=== PATIENT | female | born 1990 | race Caucasian/White ===

== ENCOUNTER 2016-07-24 14:25 | Outpatient (CLI) | payer MEDICAID ==
[~2016-07-24] VITALS: Ht 160 cm; Wt 67.7 kg
[~2016-07-24 14:25] MED LIST: ADHD MED; BACTROBAN15 GM TOP; CEPHALEXIN500 M1 PO; CLARITIN10 MG PO; CLEOCIN HCL300 MG PO; DEPO-PROVER400 MG/ML IM; DOXYCYCLINE 10100 MG PO; KLOR-CON M2020 MEQ PO; MIRENA52 MG IU; MOTRIN 800800 MG/TAB PO; NORCO 325 MG-51 TAB PO; ONE DAILY1 TA1 PO; OXY IR5 MG PO; PEPCID 20MG TAB20 MG PO; PERCOCET 325 MG1 TA2 PO; PHENERGAN12.5 MG/SU RC; PHENERGAN25 MG RC; PRENATAL1 TA1 PO; PRENATAL1 TA3 PO; PRENATAL1 TA7 PO; PROVERA 10MG10 MG PO; SPRINTEC 35 MCG1 TAB PO; VICODIN 5/5001 UDTAB PO; VITAMIN B-6100 MG PO; ZANTAC 150MG T150 MG PO; ZITHROMAX 250M250 MG PO; ZOFRAN 4MG T4 MG/TAB PO; ZOFRAN ODT4 MG PO; ZOFRAN4 M1 PO; ZOLOFT 50MG50 MG PO; ZOVIRAX 200MG200 MG PO; ZOVIRAX400 MG PO; ZOVIRAX51 PO; ZYRTEC 10MG10 MG
[2016-07-24 14:35] VITALS: BP 110/70; PULSE 68; TEMP 98.4
[2016-07-24 15:01] VITALS: BP 110/70; PULSE 68; TEMP 98.4
[2016-07-24] MEDS ORDERED: ZITHROMAX500 M2 PO (15:44)
== END 2016-07-24 15:09 | disposition home or self-care (01) ==
LOC: LDRO 14:25
DX: Z03.71 Encounter for suspected problem with amniotic cavity and membrane ruled out (principal); R05 Cough; Z3A.37 37 weeks gestation of pregnancy

== ENCOUNTER 2016-07-24 15:15 | Emergency (ER) | payer MEDICAID ==
[~2016-07-24] VITALS: Ht 160 cm; Wt 68.2 kg
[2016-07-24 15:19] VITALS: BP 101/57; PULSE 82; TEMP 98
[2016-07-24] MEDS ORDERED: ZITHROMAX500 M2 PO (15:44)
== END 2016-07-24 15:55 | disposition home or self-care (01) ==
LOC: COL.ER 15:15
DX: O99.513 Diseases of the respiratory system complicating pregnancy, third trimester (principal); J40 Bronchitis, not specified as acute or chronic; Z3A.37 37 weeks gestation of pregnancy

== ENCOUNTER 2016-07-27 19:43 | Outpatient (CLI) | payer MEDICAID ==
[~2016-07-27] VITALS: Ht 160 cm; Wt 68.2 kg
[~2016-07-27 19:43] MED LIST changes: +ZITHROMAX500 M2 PO
[2016-07-27 20:21] VITALS: PULSE 76; TEMP 98.3
[2016-07-27 21:48] LABS: BASO % 0.3 % (0.0-2.0); EOS # 0.1 (0.0-0.7); EOS % 0.7 % (0-4.0); GRAN # 7.7 (1.4-6.5); GRAN % 75.3 % (42.2-75.2); HEMATOCRIT 28.6 % (37.0-47.0); HEMOGLOBIN 9.6 g/dl (12.5-16.0); LYMPH % 19.4 % (20.0-51.0); MEAN CELL VOLUME 81 fl (80.0-100.0); MEAN CORPUSCULAR HEMOGLOBIN 27 pg (27.0-31.0); MEAN CORPUSCULAR HGB CONC 34 g/dl (33.0-37.0); MONO # 0.4 (0.1-0.6); MONO % 3.8 % (1.7-9.3); PLATELET COUNT 172 K/mm3 (130-400); RED BLOOD COUNT 3.52 M/mm3 (4.10-5.30); REDCELL DISTRIBUTION WIDTH-CV 13.3 % (11.5-14.5); WHITE BLOOD COUNT 10.2 K/mm3 (4.8-10.8)
== END 2016-07-27 22:20 | disposition home or self-care (01) ==
LOC: LDRO 19:43
PROVIDERS: Obstetrics & Gynecology
DX: O47.1 False labor at or after 37 completed weeks of gestation (principal); Z3A.37 37 weeks gestation of pregnancy; Z87.891 Personal history of nicotine dependence

== ENCOUNTER 2016-07-28 01:10 | Inpatient (IN) | payer MEDICAID ==
[~2016-07-28] VITALS: Ht 160 cm; Wt 68.2 kg
[2016-07-28] VITALS (12 sets, daily range): BP systolic 93–127; BP diastolic 59–87; PULSE 53–72; TEMP 97.6–98.4
[2016-07-29 07:30] VITALS: BP 110/84; PULSE 82; TEMP 98.4
[2016-07-29] MEDS ORDERED: IBU800 M1 PO (08:32)
[2016-07-29] MEDS ORDERED: PERCOCET 325 MG1 TA2 PO (08:33)
[2016-07-29 20:00] VITALS: BP 116/64; PULSE 62; TEMP 98
[2016-07-30 08:40] VITALS: BP 100/80; PULSE 82; TEMP 97.9
== END 2016-07-30 10:00 | disposition home or self-care (01) | DRG 775 ==
LOC: LDRO 01:10 → OB 01:35 → LDR 01:35 → OB 03:00
PROC: 10E0XZZ Delivery of Products of Conception, External Approach (ICD-10-PCS; principal; 2016-07-28)
DX: O99.824 Streptococcus B carrier state complicating childbirth (principal); O99.02 Anemia complicating childbirth; D64.9 Anemia, unspecified; Z3A.38 38 weeks gestation of pregnancy; Z37.0 Single live birth
CPT/HCPCS: J2590; J7120

== ENCOUNTER 2016-11-22 19:14 | Emergency (ER) | payer MEDICAID ==
[~2016-11-22] VITALS: Ht 160 cm; Wt 52.3 kg
[~2016-11-22 19:14] MED LIST changes: +IBU800 M1 PO
[2016-11-22 19:17] VITALS: TEMP 98.4
[2016-11-22] MEDS ORDERED: BUSPAR5 MG PO (19:19)
[2016-11-22] MEDS ORDERED: PRENATAL MVI PO (19:20)
[2016-11-22 20:21] LABS: BASO # 0.1 (0.0-0.2); EOS # 0.1 (0.0-0.7); EOS % 1.3 % (0-4.0); GRAN # 4.4 (1.4-6.5); GRAN % 62.8 % (42.2-75.2); HEMOGLOBIN 12.5 g/dl (12.5-16.0); LYMPH # 1.9 (1.2-3.4); LYMPH % 27.2 % (20.0-51.0); MEAN CELL VOLUME 84 fl (80.0-100.0); MEAN CORPUSCULAR HEMOGLOBIN 29 pg (27.0-31.0); MEAN CORPUSCULAR HGB CONC 34 g/dl (33.0-37.0); MEAN PLATELET VOLUME 11.6 fl (7.4-10.4); MONO # 0.5 (0.1-0.6); MONO % 7.4 % (1.7-9.3); PLATELET COUNT 195 K/mm3 (130-400); RED BLOOD COUNT 4.39 M/mm3 (4.10-5.30); REDCELL DISTRIBUTION WIDTH-CV 13.3 % (11.5-14.5)
[2016-11-22 20:22] LABS: HEMATOCRIT 36.8 % (37.0-47.0)
[2016-11-22 20:27] LABS: ADJUSTED CALCIUM 9.2 mg/dL (8.4-10.2); ALANINE AMINOTRANSFERASE 93 U/L (9-52); ALBUMIN 4.6 gm/dL (3.5-5.0); ALKALINE PHOSPHATASE 78 U/L (50-136); ANION GAP 16 mmol/L (7-16); BLOOD UREA NITROGEN 10 mg/dL (7-17); CALCIUM 9.7 mg/dL (8.4-10.2); CARBON DIOXIDE 21 mmol/L (22-30); CHLORIDE 103 mmol/L (98-107); CREATININE, serum 0.56 mg/dL (0.52-1.25); GLUCOSE 122 mg/dL (74-106); POTASSIUM 3.2 mmol/L (3.4-5.0); SODIUM 140 mmol/L (137-145); TOTAL PROTEIN 7.8 gm/dL (6.4-8.2)
[2016-11-22 20:28] LABS: INFLUENZA B NEGATIVE; PH 6 (5-8); SQUAMOUS EPITHELIAL 0-2 /hpf; URINE APPEARANCE Hazy; URINE BACTERIA None Seen /hpf; URINE BILIRUBIN Negative (NEGATIVE); URINE BLOOD 2+ (NEGATIVE); URINE COLOR Yellow; URINE GLUCOSE Negative (NEGATIVE); URINE KETONE 1+ (NEGATIVE); URINE RBC >50 /hpf; URINE UROBILINOGEN Negative (NEGATIVE); URINE WBC 0-2 /hpf
[2016-11-22 20:43] LABS: C-REACTIVE PROTEIN < 0.5 mg/dL (0.0-0.9)
[2016-11-22 21:11] VITALS: BP 109/69; PULSE 82
[2016-11-22] MEDS ORDERED: ZITHROMAX 250M250 MG PO (21:19)
[2016-11-22] MEDS ORDERED: NORCO 325 MG-51 TAB PO (21:19)
== END 2016-11-22 21:32 | disposition home or self-care (01) ==
LOC: COL.ER 19:14
PROVIDERS: Emergency Medicine
DX: O98.511 Other viral diseases complicating pregnancy, first trimester (principal); B27.90 Infectious mononucleosis, unspecified without complication; O99.511 Diseases of the respiratory system complicating pregnancy, first trimester; J40 Bronchitis, not specified as acute or chronic; O99.341 Other mental disorders complicating pregnancy, first trimester; F32.9 Major depressive disorder, single episode, unspecified; F41.9 Anxiety disorder, unspecified; Z3A.01 Less than 8 weeks gestation of pregnancy
CPT/HCPCS: J7030

== ENCOUNTER 2017-04-15 22:26 | Outpatient (CLI) | payer MEDICAID ==
[~2017-04-15] VITALS: Ht 160 cm; Wt 56.8 kg
[~2017-04-15 22:26] MED LIST changes: +BUSPAR5 MG PO; +PRENATAL MVI PO
[2017-04-15 23:10] VITALS: BP 96/57; PULSE 91; TEMP 98.1
== END 2017-04-15 23:20 | disposition home or self-care (01) ==
LOC: LDRO 22:26
DX: O26.892 Other specified pregnancy related conditions, second trimester (principal); R52 Pain, unspecified; Z3A.26 26 weeks gestation of pregnancy

== ENCOUNTER 2017-05-01 22:30 | Emergency (ER) | payer MEDICAID ==
[~2017-05-01] VITALS: Ht 160 cm; Wt 62.3 kg
[2017-05-01 22:33] VITALS: TEMP 97.8
[2017-05-01] MEDS ORDERED: BUSPAR5 MG PO (22:35)
[2017-05-01 23:02] LABS: BASO % 0.4 % (0.0-2.0); EOS # 0.1 (0.0-0.7); EOS % 0.7 % (0-4.0); GRAN % 75.8 % (42.2-75.2); LYMPH # 1.6 (1.2-3.4); LYMPH % 15.5 % (20.0-51.0); MEAN CELL VOLUME 90 fl (80.0-100.0); MEAN CORPUSCULAR HGB CONC 35 g/dl (33.0-37.0); MEAN PLATELET VOLUME 11.3 fl (7.4-10.4); MONO # 0.7 (0.1-0.6); PLATELET COUNT 138 K/mm3 (130-400); RED BLOOD COUNT 3.65 M/mm3 (4.10-5.30); WHITE BLOOD COUNT 10.5 K/mm3 (4.8-10.8)
[2017-05-01 23:03] LABS: HEMATOCRIT 32.7 % (37.0-47.0); HEMOGLOBIN 11.3 g/dl (12.5-16.0); MEAN CORPUSCULAR HEMOGLOBIN 31 pg (27.0-31.0)
[2017-05-01 23:11] LABS: CALCIUM 8.7 mg/dL (8.4-10.2); CREATININE, serum 0.45 mg/dL (0.52-1.25); POTASSIUM 3.6 mmol/L (3.4-5.0)
[2017-05-01 23:21] LABS: COLLECTION METHOD CLEAN CATCH
[2017-05-01 23:29] LABS: MUCOUS Present /lpf; PH 7 (5-8); URINE APPEARANCE Hazy; URINE BACTERIA Rare /hpf; URINE BILIRUBIN Negative (NEGATIVE); URINE BLOOD Negative (NEGATIVE); URINE COLOR Yellow; URINE GLUCOSE Negative (NEGATIVE); URINE KETONE 1+ (NEGATIVE); URINE LEUKOCYTE ESTERASE 2+ (NEGATIVE); URINE PROTEIN(semi-quant) Negative (NEGATIVE); URINE RBC 0-2 /hpf; URINE UROBILINOGEN Negative (NEGATIVE)
[2017-05-01] MEDS ORDERED: PHENERGAN 25 TA25 MG PO ×2 (23:34→23:51)
[2017-05-02 01:43] VITALS: BP 101/65; PULSE 88
== END 2017-05-02 01:45 | disposition home or self-care (01) ==
LOC: COL.ER 22:30
PROVIDERS: Emergency Medicine
DX: O21.9 Vomiting of pregnancy, unspecified (principal); O99.89 Other specified diseases and conditions complicating pregnancy, childbirth and the puerperium; R19.7 Diarrhea, unspecified; Z3A.29 29 weeks gestation of pregnancy
CPT/HCPCS: J2405; J2550; J7030

== ENCOUNTER 2017-05-12 01:48 | Emergency (ER) | payer MEDICAID ==
[~2017-05-12] VITALS: Ht 160 cm; Wt 64.3 kg
[~2017-05-12 01:48] MED LIST changes: +PHENERGAN 25 TA25 MG PO
[2017-05-12 01:53] VITALS: BP 123/68
[2017-05-12 02:19] LABS: COLLECTION METHOD CLEAN CATCH
[2017-05-12 02:38] LABS: AMORPHOUS CRYSTAL Present /uL; MUCOUS Present /lpf; PH 7 (5-8); URINE APPEARANCE Cloudy; URINE BACTERIA Rare /hpf; URINE BILIRUBIN Negative (NEGATIVE); URINE BLOOD Negative (NEGATIVE); URINE COLOR Yellow; URINE GLUCOSE Negative (NEGATIVE); URINE KETONE Negative (NEGATIVE); URINE LEUKOCYTE ESTERASE 3+ (NEGATIVE); URINE PROTEIN(semi-quant) 1+ (NEGATIVE); URINE UROBILINOGEN Negative (NEGATIVE)
[2017-05-12] MEDS ORDERED: FLAGYL500 MG PO (03:04)
[2017-05-12 03:17] VITALS: PULSE 125; TEMP 97.5
[2017-05-12 05:11] LABS: CHLAMYDIA/TRACH by PCR Female NOT DETECTED; NEISSERIA GON by PCR Female NOT DETECTED
== END 2017-05-12 03:17 | disposition home or self-care (01) ==
LOC: COL.ER 01:48
PROVIDERS: Nurse Practitioner
DX: O23.593 Infection of other part of genital tract in pregnancy, third trimester (principal); N76.0 Acute vaginitis; O99.343 Other mental disorders complicating pregnancy, third trimester; F31.9 Bipolar disorder, unspecified; F90.9 Attention-deficit hyperactivity disorder, unspecified type; Z87.891 Personal history of nicotine dependence; Z3A.30 30 weeks gestation of pregnancy

== ENCOUNTER 2017-06-23 23:36 | Emergency (ER) | payer MEDICAID ==
[~2017-06-23] VITALS: Ht 160 cm; Wt 69.7 kg
[~2017-06-23 23:36] MED LIST changes: +FLAGYL500 MG PO
[2017-06-23 23:43] VITALS: TEMP 98.5
[2017-06-24 01:02] VITALS: BP 128/83; PULSE 89
== END 2017-06-24 01:02 | disposition home or self-care (01) ==
LOC: COL.ER 23:36
DX: O99.513 Diseases of the respiratory system complicating pregnancy, third trimester (principal); J06.9 Acute upper respiratory infection, unspecified; Z3A.37 37 weeks gestation of pregnancy

== ENCOUNTER 2017-07-08 15:04 | Outpatient (CLI) | payer MEDICAID ==
[~2017-07-08] VITALS: Ht 160 cm; Wt 69.1 kg
[2017-07-08 15:15] VITALS: BP 98/61; PULSE 72; TEMP 98.5
[2017-07-08 15:17] VITALS: BP 98/61; PULSE 72; TEMP 98.5
== END 2017-07-08 16:27 | disposition home or self-care (01) ==
LOC: LDRO 15:04 → LDR 15:10 → LDRO 16:27
DX: O36.8130 Decreased fetal movements, third trimester, not applicable or unspecified (principal); O99.89 Other specified diseases and conditions complicating pregnancy, childbirth and the puerperium; R10.9 Unspecified abdominal pain; Z3A.38 38 weeks gestation of pregnancy
CPT/HCPCS: OP

== ENCOUNTER 2017-07-12 05:06 | Emergency (ER) | payer MEDICAID ==
[~2017-07-12] VITALS: Ht 160 cm; Wt 69.1 kg
[2017-07-12 06:02] LABS: INFLUENZA A NEGATIVE; INFLUENZA B NEGATIVE; STREP SCREEN POSITIVE
[2017-07-12 06:27] LABS: COLLECTION METHOD CLEAN CATCH
[2017-07-12 06:42] LABS: AMORPHOUS CRYSTAL Present /uL; MUCOUS Present /lpf; PH 7 (5-8); URINE APPEARANCE Cloudy; URINE BACTERIA None Seen /hpf; URINE BILIRUBIN Negative (NEGATIVE); URINE BLOOD Negative (NEGATIVE); URINE COLOR Yellow; URINE GLUCOSE Negative (NEGATIVE); URINE KETONE Negative (NEGATIVE); URINE LEUKOCYTE ESTERASE Negative (NEGATIVE); URINE NITRATE Negative (NEGATIVE); URINE PROTEIN(semi-quant) Negative (NEGATIVE); URINE RBC 0-2 /hpf
[2017-07-12] MEDS ORDERED: OMNICEF 300MG300 MG PO (06:57)
[2017-07-12 07:13] VITALS: BP 117/79; PULSE 73; TEMP 98.2
== END 2017-07-12 07:14 | disposition home or self-care (01) ==
LOC: COL.ER 05:06
PROVIDERS: Emergency Medicine
DX: O99.513 Diseases of the respiratory system complicating pregnancy, third trimester (principal); J02.0 Streptococcal pharyngitis; Z3A.39 39 weeks gestation of pregnancy

== ENCOUNTER 2017-07-15 19:16 | Inpatient (IN) | payer MEDICAID ==
[~2017-07-15] VITALS: Ht 160 cm; Wt 69.1 kg
[~2017-07-15 19:16] MED LIST changes: +OMNICEF 300MG300 MG PO
[2017-07-15 20:30] VITALS: BP 111/77; PULSE 77; TEMP 97.7
[2017-07-15 22:05] LABS: BASO % 0.5 % (0.0-2.0); EOS # 0.1 (0.0-0.7); EOS % 0.6 % (0-4.0); GRAN # 6.2 (1.4-6.5); GRAN % 74.6 % (42.2-75.2); LYMPH # 1.5 (1.2-3.4); LYMPH % 18.5 % (20.0-51.0); MEAN CELL VOLUME 84 fl (80.0-100.0); MEAN CORPUSCULAR HGB CONC 32 g/dl (33.0-37.0); MEAN PLATELET VOLUME 10.8 fl (7.4-10.4); MONO # 0.4 (0.1-0.6); MONO % 5.2 % (1.7-9.3); PLATELET COUNT 192 K/mm3 (130-400); RED BLOOD COUNT 3.19 M/mm3 (4.10-5.30); REDCELL DISTRIBUTION WIDTH-CV 13.6 % (11.5-14.5)
[2017-07-15 22:08] LABS: HEMATOCRIT 26.9 % (37.0-47.0); HEMOGLOBIN 8.7 g/dl (12.5-16.0); MEAN CORPUSCULAR HEMOGLOBIN 27 pg (27.0-31.0)
[2017-07-15 22:45] VITALS: BP 114/68; PULSE 71
[2017-07-15 23:15] VITALS: BP 131/73; PULSE 72
[2017-07-15 23:30] VITALS: BP 115/74; PULSE 78
[2017-07-15 23:45] VITALS: BP 103/57; PULSE 65; TEMP 97.8
[2017-07-16] VITALS (16 sets, daily range): BP systolic 98–148; BP diastolic 29–92; PULSE 40–70; TEMP 97.6–99.1
[2017-07-16 01:04] LABS: TRICYCLIC ANTIDEPRESS URINE NEGATIVE
[2017-07-17 00:21] VITALS: BP 98/46; PULSE 62; TEMP 97.6
[2017-07-17] MEDS ORDERED: PERCOCET 325 MG1 TA2 PO (08:23)
[2017-07-17] MEDS ORDERED: IBU600 MG PO (08:23)
[2017-07-17 08:25] VITALS: BP 92/57; PULSE 62; TEMP 98.1
[2017-07-17 15:54] VITALS: BP 95/54; PULSE 57; TEMP 98.6
== END 2017-07-17 18:00 | disposition home or self-care (01) | DRG 774 ==
LOC: LDRO 19:16 → LDR 21:44 → OB 21:44
PROVIDERS: Obstetrics & Gynecology
PROC: 10E0XZZ Delivery of Products of Conception, External Approach (ICD-10-PCS; principal; 2017-07-16)
DX: O69.81X0 Labor and delivery complicated by cord around neck, without compression, not applicable or unspecified (principal); O98.313 Other infections with a predominantly sexual mode of transmission complicating pregnancy, third trimester; Z3A.39 39 weeks gestation of pregnancy; A59.01 Trichomonal vulvovaginitis; Z37.0 Single live birth
CPT/HCPCS: J2590; J7120

== ENCOUNTER 2017-10-07 03:13 | Emergency (ER) | payer MEDICAID ==
[~2017-10-07] VITALS: Ht 160 cm; Wt 52.3 kg
[~2017-10-07 03:13] MED LIST changes: +IBU600 MG PO
[2017-10-07 03:15] VITALS: BP 113/78; PULSE 70; TEMP 97.8
[2017-10-07 03:43] LABS: COLLECTION METHOD CLEAN CATCH
[2017-10-07 03:49] LABS: PH 6 (5-8); SQUAMOUS EPITHELIAL 0-2 /hpf; URINE APPEARANCE Clear; URINE BACTERIA None Seen /hpf; URINE BILIRUBIN Negative (NEGATIVE); URINE BLOOD 2+ (NEGATIVE); URINE COLOR Straw; URINE GLUCOSE Negative (NEGATIVE); URINE KETONE Negative (NEGATIVE); URINE LEUKOCYTE ESTERASE Negative (NEGATIVE); URINE NITRATE Negative (NEGATIVE); URINE PROTEIN(semi-quant) Negative (NEGATIVE); URINE RBC 0-2 /hpf; URINE UROBILINOGEN Negative (NEGATIVE)
[2017-10-07 04:09] LABS: BASO # 0.1 (0.0-0.2); BASO % 1.1 % (0.0-2.0); EOS # 0.1 (0.0-0.7); EOS % 1.8 % (0-4.0); GRAN # 3.7 (1.4-6.5); GRAN % 51.1 % (42.2-75.2); HEMOGLOBIN 12.1 g/dl (12.5-16.0); LYMPH # 2.9 (1.2-3.4); LYMPH % 39.3 % (20.0-51.0); MEAN CELL VOLUME 79 fl (80.0-100.0); MEAN CORPUSCULAR HEMOGLOBIN 26 pg (27.0-31.0); MEAN CORPUSCULAR HGB CONC 33 g/dl (33.0-37.0); MONO # 0.5 (0.1-0.6); MONO % 6.6 % (1.7-9.3); PLATELET COUNT 260 K/mm3 (130-400); RED BLOOD COUNT 4.66 M/mm3 (4.10-5.30); REDCELL DISTRIBUTION WIDTH-CV 14.5 % (11.5-14.5)
[2017-10-07 04:16] LABS: ALBUMIN 4.1 gm/dL (3.5-5.0); BILIRUBIN,TOTAL 0.3 mg/dL (0.0-1.0); CALCIUM 9.2 mg/dL (8.4-10.2); CREATININE, serum 0.58 mg/dL (0.52-1.25); POTASSIUM 3.7 mmol/L (3.4-5.0); TOTAL PROTEIN 7.8 gm/dL (6.4-8.2)
== END 2017-10-07 07:11 | disposition home or self-care (01) ==
LOC: COL.ER 03:13
PROVIDERS: Emergency Medicine
DX: R10.30 Lower abdominal pain, unspecified (principal); F17.210 Nicotine dependence, cigarettes, uncomplicated; Z87.442 Personal history of urinary calculi; Z98.890 Other specified postprocedural states

== ENCOUNTER 2017-11-22 23:46 | Emergency (ER) | payer MEDICAID ==
[~2017-11-22] VITALS: Ht 160 cm; Wt 50.0 kg
[2017-11-22 23:55] VITALS: BP 124/76; TEMP 97.9
[2017-11-23 00:24] LABS: COLLECTION METHOD CLEAN CATCH
[2017-11-23 00:26] LABS: BASO # 0.1 (0.0-0.2); BASO % 0.9 % (0.0-2.0); EOS % 0.5 % (0-4.0); GRAN # 3.9 (1.4-6.5); HEMOGLOBIN 11.6 g/dl (12.5-16.0); LYMPH # 2.9 (1.2-3.4); LYMPH % 38.1 % (20.0-51.0); MEAN CELL VOLUME 81 fl (80.0-100.0); MEAN CORPUSCULAR HEMOGLOBIN 27 pg (27.0-31.0); MEAN CORPUSCULAR HGB CONC 34 g/dl (33.0-37.0); MEAN PLATELET VOLUME 11.5 fl (7.4-10.4); MONO # 0.6 (0.1-0.6); MONO % 8.2 % (1.7-9.3); PLATELET COUNT 199 K/mm3 (130-400); RED BLOOD COUNT 4.23 M/mm3 (4.10-5.30); REDCELL DISTRIBUTION WIDTH-CV 13.6 % (11.5-14.5)
[2017-11-23 00:31] LABS: HEMATOCRIT 34.4 % (37.0-47.0)
[2017-11-23 00:32] LABS: MUCOUS Present /lpf; PH 6 (5-8); SQUAMOUS EPITHELIAL 0-2 /hpf; URINE APPEARANCE Clear; URINE BACTERIA Rare /hpf; URINE BILIRUBIN Negative (NEGATIVE); URINE BLOOD Negative (NEGATIVE); URINE COLOR Yellow; URINE GLUCOSE Negative (NEGATIVE); URINE KETONE Negative (NEGATIVE); URINE LEUKOCYTE ESTERASE Negative (NEGATIVE); URINE NITRATE Negative (NEGATIVE); URINE PROTEIN(semi-quant) Negative (NEGATIVE); URINE RBC None Seen /hpf; URINE UROBILINOGEN Negative (NEGATIVE)
[2017-11-23 00:45] LABS: ALANINE AMINOTRANSFERASE 29 U/L (9-52); ALBUMIN 4.1 gm/dL (3.5-5.0); ALKALINE PHOSPHATASE 66 U/L (50-136); ANION GAP 14 mmol/L (7-16); AST,SGOT 22 U/L (15-37); BILIRUBIN,TOTAL 0.8 mg/dL (0.0-1.0); BLOOD UREA NITROGEN 13 mg/dL (7-17); CALCIUM 9.3 mg/dL (8.4-10.2); CARBON DIOXIDE 19 mmol/L (22-30); CHLORIDE 108 mmol/L (98-107); GLUCOSE 94 mg/dL (74-106); LIPASE 84 U/L (23-300); POTASSIUM 3.3 mmol/L (3.4-5.0); SODIUM 142 mmol/L (137-145); TOTAL PROTEIN 7.6 gm/dL (6.4-8.2)
[2017-11-23 01:00] LABS: C-REACTIVE PROTEIN < 0.5 mg/dL (0.0-0.9)
[2017-11-23] MEDS ORDERED: ZOFRAN 4MG T4 MG/TAB PO (02:06)
[2017-11-23] MEDS ORDERED: PHENERGAN 25 TA25 MG PO (02:06)
[2017-11-23 02:29] VITALS: PULSE 57
== END 2017-11-23 02:29 | disposition home or self-care (01) ==
LOC: COL.ER 23:46
PROVIDERS: Emergency Medicine
DX: R11.2 Nausea with vomiting, unspecified (principal); F41.9 Anxiety disorder, unspecified; Z87.442 Personal history of urinary calculi; Z87.891 Personal history of nicotine dependence
CPT/HCPCS: J2405; J7030

== ENCOUNTER 2018-04-29 12:37 | Emergency (ER) | payer MEDICAID ==
[~2018-04-29] VITALS: Ht 160 cm; Wt 58.2 kg
[2018-04-29 13:13] VITALS: BP 111/55; TEMP 99
[2018-04-29] MEDS ORDERED: BONJESTA ER 201 EACH PO (13:56)
[2018-04-29] MEDS ORDERED: ZITHROMAX Z PA250 MG PO (14:23)
[2018-04-29 14:36] VITALS: PULSE 82
== END 2018-04-29 14:37 | disposition home or self-care (01) ==
LOC: COL.ER 12:37
DX: O99.342 Other mental disorders complicating pregnancy, second trimester (principal); O26.892 Other specified pregnancy related conditions, second trimester; J02.9 Acute pharyngitis, unspecified; F31.9 Bipolar disorder, unspecified; F90.9 Attention-deficit hyperactivity disorder, unspecified type; Z87.891 Personal history of nicotine dependence; Z3A.17 17 weeks gestation of pregnancy; Z87.442 Personal history of urinary calculi

== ENCOUNTER 2018-07-17 12:04 | Outpatient (CLI) | payer MEDICAID ==
[~2018-07-17] VITALS: Ht 160 cm; Wt 68.2 kg
[~2018-07-17 12:04] MED LIST changes: +BONJESTA ER 201 EACH PO; +ZITHROMAX Z PA250 MG PO
[2018-07-17 12:16] VITALS: BP 100/61; PULSE 75; TEMP 98.3
[2018-07-17] MEDS ORDERED: ZANTAC 7575 MG PO (12:24)
--- NOTE | 2018-07-17 12:55 | NUR ---
1210- Pt arrives on unit ambulatory for labor check. States she thinks her water broke possibly Monday night. States she has intermittent "little gushes", they usually occur when the baby moves or if she is changing positions in bed while sleeping but states it doesnt happen while she is walking around. Pt denies other problems with . 1213- EFM and TOCO on and tracing. Assessment completed. VSS. 1232- Amniotrace performed by this RN, Pt encouraged to cough, no change noted to swab. SVE also by this RN, cervix MP and low in pelvis, closed and thick. 1248- EFM and TOCO off. Pt up to change into street clothes. 1255- Discharge paperwork given and explained. Pt denies questions. Ambulates off unit independently, in stable condition.
== END 2018-07-17 12:55 | disposition home or self-care (01) ==
LOC: LDRO 12:04
DX: Z34.92 Encounter for supervision of normal pregnancy, unspecified, second trimester (principal); Z3A.27 27 weeks gestation of pregnancy

== ENCOUNTER 2018-08-24 15:05 | Outpatient (CLI) | payer MEDICAID ==
[~2018-08-24] VITALS: Ht 160 cm; Wt 66.8 kg
[~2018-08-24 15:05] MED LIST changes: +ZANTAC 7575 MG PO
--- NOTE | 2018-08-24 15:10 | NUR ---
1510- Pt arrives on unit with complaints of sharp lower abd pain. Denies cramping or contractions. Denies VB, LOF. +FM. Pt has 3 of her young children with her and no support person. 1518- Pt into bed, EFM and TOCO on and tracing. Assessment completed. VSS. Call light within reach.
[2018-08-24 15:21] VITALS: BP 118/70; PULSE 110; TEMP 98
[2018-08-24] MEDS ORDERED: VALTREX 50500 MG/TAB PO (15:27)
--- NOTE | 2018-08-24 16:00 | NUR ---
1555- Pt up to void and provide UA. EFM and TOCO off. Category I FHR tracing noted. Pt remains off unit so she could tend to her children while UA processes. 1632- Pt back to bed, EFM and TOCO on and tracing. 1634- FHR noted to be tracing 80-90, this RN at bedisde. Pt sitting stright up in bed with child on lap. Pt encouraged to reposition. FHR back to baseline.
[2018-08-24 16:10] LABS: COLLECTION METHOD CLEAN CATCH
[2018-08-24 16:38] LABS: AMORPHOUS CRYSTAL Present /uL; PH 9 (5-8); SQUAMOUS EPITHELIAL 0-2 /hpf; URINE APPEARANCE Turbid; URINE BACTERIA None Seen /hpf; URINE BILIRUBIN Negative (NEGATIVE); URINE BLOOD Negative (NEGATIVE); URINE CALCIUM OXALATE CRYSTAL Present /hpf; URINE COLOR Amber; URINE GLUCOSE Negative (NEGATIVE); URINE KETONE Negative (NEGATIVE); URINE LEUKOCYTE ESTERASE Negative (NEGATIVE); URINE NITRATE Negative (NEGATIVE); URINE PROTEIN(semi-quant) Negative (NEGATIVE); URINE RBC 0-2 /hpf; URINE UROBILINOGEN Negative (NEGATIVE)
--- NOTE | 2018-08-24 16:41 | NUR ---
1641- Pt updated on plan to discharge Pt home. EFM and TOCO off. Pt denies questions at this time. 1647- Discharge paperwork given and explained. Pt denies questions. 1650- Pt ambulates off unit independently in stable condition with children.
== END 2018-08-24 16:50 | disposition home or self-care (01) ==
LOC: LDRO 15:05 → LDR 15:15 → LDRO 16:50
PROVIDERS: Obstetrics & Gynecology
DX: O26.893 Other specified pregnancy related conditions, third trimester (principal); R10.9 Unspecified abdominal pain; Z3A.33 33 weeks gestation of pregnancy
CPT/HCPCS: OP

== ENCOUNTER 2018-09-14 20:26 | Outpatient (CLI) | payer MEDICAID ==
[~2018-09-14] VITALS: Ht 160 cm; Wt 70.0 kg
[~2018-09-14 20:26] MED LIST changes: -ZOFRAN8 MG PO
--- NOTE | 2018-09-14 20:30 | NUR ---
2029 G9L5 36.4 WEEK GEST TO LR3 WITH C/O CONSTANT BACK AND PELVIC PAIN AND VAGINAL PRESSURE AND SOB. EFM ON. NO CONTRACTIONS SEEN OR C/O BY PT. ALVAROE . VERY ANXIOUS TO HAVE HER BABY. DEL ONE OF HER CHILDREN IN CAR ON WAY TO HOSPITAL AND AFFRAID THAT WILL HAPPEN AGAIN. ASSESSMENT DONE. 2044 DR SILVER CALLED IN AND REPORT GIVEN WITH ORDER TO DISMISS IN ONE HOUR IF NO CERVICAL CHANGE.
[2018-09-14 20:40] VITALS: BP 121/77; PULSE 65; TEMP 98.2
[2018-09-14] MEDS ORDERED: ZOFRAN8 MG PO (20:57)
[2018-09-14 21:00] VITALS: BP 121/77; PULSE 65; TEMP 98.2
--- NOTE | 2018-09-14 21:30 | NUR ---
2130 SVE WITH NO CHANGE. C/O SOB ON ADM. LUNGS CL X4 AND PULSE OX WAS 99%. NO OBVIOUS SIGNS OF LABORED BREATHING OR SOB. DISMISS INSTRUCTIONS GIVEN. WAITING FOR RIDE 2200 HOME WITH INSTRUCTIONS.
== END 2018-09-14 22:00 | disposition home or self-care (01) ==
LOC: LDRO 20:26
DX: O99.89 Other specified diseases and conditions complicating pregnancy, childbirth and the puerperium (principal); M54.9 Dorsalgia, unspecified; M25.559 Pain in unspecified hip; Z3A.36 36 weeks gestation of pregnancy

== ENCOUNTER → 2018-09-14 | Emergency (ER) | payer MEDICAID ==
[~2018-09-14] MED LIST changes: +VALTREX 50500 MG/TAB PO; +ZOFRAN8 MG PO
== END ==
LOC: COL.ER 20:05
DX: Z72.9 Problem related to lifestyle, unspecified (principal)

== ENCOUNTER 2018-09-16 11:16 | Outpatient (CLI) | payer MEDICAID ==
[~2018-09-16] VITALS: Ht 160 cm; Wt 69.1 kg
[~2018-09-16 11:16] MED LIST changes: +ZOFRAN8 MG PO
--- NOTE | 2018-09-16 11:30 | NUR ---
Pt arrives on unit ambulatory. States decreased movement, "I haven't felt the baby move since last night. Normally I drink orange juice in the morning and she kicks, but today she hasn't. I have also had blood when I wipe since , I'm not sure if my water broke." G9L5 at 37.4 weeks. Denies regular contractions. Changed into a clean gown. EFM and toco applied. VSS. Amniotest negative. SVE per this RN /-3 with white discharge on glove. No blood. Admission assessment completed. Dr. Khalil notified. Orders for discharge with reactive FHR strip.
[2018-09-16 12:12] VITALS: BP 112/73; PULSE 92; TEMP 98.1
--- NOTE | 2018-09-16 12:12 | NUR ---
SVE unchanged. Reactive FHR strip obtained. Pt taken off monitors. Discharge instructions given. No questions at this time. Leaves unit ambulatory.
== END 2018-09-16 12:15 | disposition home or self-care (01) ==
LOC: LDRO 11:16 → LDR 11:42 → LDRO 12:15
DX: O36.8130 Decreased fetal movements, third trimester, not applicable or unspecified (principal); Z3A.37 37 weeks gestation of pregnancy
CPT/HCPCS: OP

== ENCOUNTER 2018-09-19 19:07 | Outpatient (CLI) | payer MEDICAID ==
[~2018-09-19] VITALS: Ht 160 cm; Wt 70.0 kg
--- NOTE | 2018-09-19 19:15 | NUR ---
G9L5. 37-1. Ambulatory to LDR 1. Clean gown on. EFM and TOCO explained and applied. Pt states she thinks her water broke around 0600 this morning. She was unsure if it was her water so she waited and throughout the day she states her underwear was wet multiple times throughout the day. Pt states she did not put a pad on due to them being uncomfortable. Pt denies contractions but states her lower back started hurting around 1200 today and is come and go. Pt states with her other labors she did not have contractions or did not feel them at least. SVE 2-3/75/-3, amniotest negative and was a dry exam by JENNY Key. Plan of care explained and pt verbalizes understanding. Call light within reach. 1953: updated on pts status and discharge orders received. See physican notification. 1999: 's orders explained and pt comfortable with being discharge without staying the extra hour. Pt off moniotors to change. 2011: Discharge instructions explained and pt verbalized understanding. Pt ambulatory off unit.
[2018-09-19 19:29] VITALS: BP 115/73; PULSE 85; TEMP 98.1
== END 2018-09-19 20:12 | disposition home or self-care (01) ==
LOC: LDRO 19:07
DX: O42.92 Full-term premature rupture of membranes, unspecified as to length of time between rupture and onset of labor (principal); Z3A.37 37 weeks gestation of pregnancy

== ENCOUNTER 2018-09-26 11:03 | Outpatient (CLI) | payer MEDICAID ==
[~2018-09-26] VITALS: Ht 160 cm; Wt 70.9 kg
[2018-09-26 11:10] VITALS: BP 117/76; PULSE 83; TEMP 98.1
--- NOTE | 2018-09-26 11:10 | NUR ---
Pt here from ER with c/o vaginal pressure. Pt to LDR 4 and to EFM. Pt 38.1 weeks gestation, G9L5. Pt states baby is active, denies any contractions. SVE: -2, no change from the office exam 2 days ago. Assessment complete. 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 GBS + and GERD. Dr Fragoso called and updated, may dc home after reactive NST.
[2018-09-26 11:12] VITALS: BP 117/76; PULSE 83; TEMP 98.1
[2018-09-26 11:35] VITALS: PULSE 78
--- NOTE | 2018-09-26 11:38 | NUR ---
1140NO CHANGES AND NO CONTRACTIONS NOTED. DR MCCLAIN CALLED AND VIEWED STRIP. ORDERS TO DISMISS TO HOME. ALL DISCHARGE INSTRUCTIONS GIVEN TO PATIENT WITH VERBAL UNDERSTANDING.
== END 2018-09-26 11:46 | disposition home or self-care (01) ==
LOC: LDRO 11:03 → LDR 11:15 → LDRO 11:46
DX: O26.893 Other specified pregnancy related conditions, third trimester (principal); R10.2 Pelvic and perineal pain; Z3A.38 38 weeks gestation of pregnancy
CPT/HCPCS: OP

== ENCOUNTER 2018-09-27 20:21 | Inpatient (IN) | payer MEDICAID ==
[~2018-09-27] VITALS: Ht 160 cm; Wt 70.9 kg
--- NOTE | 2018-09-27 20:15 | NUR ---
2014- Patient brought up to labor and delivery via wheelchair from emergency department. 2017- EFM applied. Patient pale/green in the face, emesis bucket placed at bedside. Patient c/o of nausea and vomiting since yesterday 09/26 but has gotten worse today. Unable to eat or drink, and has had diarrhea today. Patient was last seen yesterday for similar symptoms. 2026- Vitals stable, temp 99.2, SVE 3/50/-2 (same exam as yesterday) 2034- Dr. Solorzano called at this time, for orders. Orders receieved to start IV, draw labs, give fluid and anti-nausea/vomiting med. see physician notification.
[~2018-09-27 20:21] MED LIST changes: -PROTONIX20 MG PO
[2018-09-27 20:30] VITALS: BP 118/79; PULSE 96; TEMP 99.3
[2018-09-27 21:18] LABS: COLLECTION METHOD CLEAN CATCH
[2018-09-27 21:21] LABS: BASO % 0.2 % (0.0-2.0); EOS % 0.1 % (0-4.0); GRAN # 12.1 (1.4-6.5); LYMPH % 6.9 % (20.0-51.0); MEAN CELL VOLUME 92 fl (80.0-100.0); MEAN CORPUSCULAR HEMOGLOBIN 32 pg (27.0-31.0); MEAN CORPUSCULAR HGB CONC 35 g/dl (33.0-37.0); MONO # 0.6 (0.1-0.6); MONO % 4.2 % (1.7-9.3); PLATELET COUNT 106 K/mm3 (130-400); RED BLOOD COUNT 3.78 M/mm3 (4.10-5.30); REDCELL DISTRIBUTION WIDTH-CV 14.1 % (11.5-14.5)
[2018-09-27 21:32] LABS: ALANINE AMINOTRANSFERASE 19 U/L (9-52); ALBUMIN 3.4 gm/dL (3.5-5.0); ALKALINE PHOSPHATASE 171 U/L (50-136); ANION GAP 9 mmol/L (7-16); AST,SGOT 35 U/L (15-37); CALCIUM 7.9 mg/dL (8.4-10.2); CARBON DIOXIDE 26 mmol/L (22-30); CHLORIDE 105 mmol/L (98-107); CREATININE, serum 0.41 (0.52-1.25); GLUCOSE 64 mg/dL (74-106); SODIUM 139 mmol/L (137-145); TOTAL PROTEIN 6.3 gm/dL (6.4-8.2)
[2018-09-27 21:42] LABS: HEMATOCRIT 34.7 % (37.0-47.0)
[2018-09-27 21:48] LABS: BLOOD UREA NITROGEN < 2 mg/dL (7-17)
[2018-09-27 21:49] LABS: POTASSIUM 2.4 mmol/L (3.4-5.0)
[2018-09-27 21:50] LABS: MUCOUS Present /lpf; PH 6 (5-8); URINE APPEARANCE Hazy; URINE BACTERIA None Seen /hpf; URINE BILIRUBIN Negative (NEGATIVE); URINE BLOOD Negative (NEGATIVE); URINE COLOR Yellow; URINE GLUCOSE Negative (NEGATIVE); URINE KETONE 2+ (NEGATIVE); URINE LEUKOCYTE ESTERASE 1+ (NEGATIVE); URINE NITRATE Negative (NEGATIVE); URINE PROTEIN(semi-quant) 1+ (NEGATIVE); URINE RBC 0-2 /hpf; URINE UROBILINOGEN Negative (NEGATIVE)
--- NOTE | 2018-09-27 23:00 | NUR ---
Dr. Solorzano on the unit. FHR tracing reviewed.
--- NOTE | 2018-09-27 23:17 | NUR ---
EFM tracing maternal HR. Pierpoint monitor readjusted.
[2018-09-27 23:18] LABS: TRICYCLIC ANTIDEPRESS URINE NEGATIVE
--- NOTE | 2018-09-27 23:24 | NUR ---
O2 via facemask off.
[2018-09-27 23:30] VITALS: BP 116/79; PULSE 114
[2018-09-28] VITALS (32 sets, daily range): BP systolic 91–129; BP diastolic 57–86; PULSE 65–101; TEMP 98.2–99.5
--- NOTE | 2018-09-28 02:00 | NUR ---
EFM intermittently tracing maternal HR as coorelates with SPO2 monitor. EFM monitor adjusted.
--- NOTE | 2018-09-28 03:55 | NUR ---
EFM intermittently tracing maternal HR as coorelates with SPO2 monitor. EFM monitor adjusted.
--- NOTE | 2018-09-28 04:20 | NUR ---
EFM tracing maternal HR. EFM monitor adjusted.
[2018-09-28 05:55] LABS: COLLECTION METHOD CLEAN CATCH
[2018-09-28 06:03] LABS: PH 7 (5-8); URINE APPEARANCE Hazy; URINE BACTERIA None Seen /hpf; URINE BILIRUBIN Negative (NEGATIVE); URINE BLOOD Negative (NEGATIVE); URINE COLOR Yellow; URINE GLUCOSE Negative (NEGATIVE); URINE KETONE 2+ (NEGATIVE); URINE LEUKOCYTE ESTERASE Trace (NEGATIVE); URINE NITRATE Negative (NEGATIVE); URINE PROTEIN(semi-quant) Negative (NEGATIVE); URINE RBC 0-2 /hpf; URINE UROBILINOGEN Negative (NEGATIVE)
[2018-09-28 06:15] LABS: ALANINE AMINOTRANSFERASE 23 U/L (9-52); ALKALINE PHOSPHATASE 141 U/L (50-136); ANION GAP 7 mmol/L (7-16); AST,SGOT 32 U/L (15-37); BILIRUBIN,TOTAL 0.8 mg/dL (0.0-1.0); CALCIUM 7.5 mg/dL (8.4-10.2); CARBON DIOXIDE 29 mmol/L (22-30); CHLORIDE 103 mmol/L (98-107); CREATININE, serum 0.43 (0.52-1.25); GLUCOSE 85 mg/dL (74-106); SODIUM 139 mmol/L (137-145); TOTAL PROTEIN 5.8 gm/dL (6.4-8.2)
[2018-09-28 06:20] LABS: BLOOD UREA NITROGEN < 2 mg/dL (7-17); POTASSIUM 2.8 mmol/L (3.4-5.0)
--- NOTE | 2018-09-28 06:20 | NUR ---
0620- Report from Makayla Wood RN and care of patient assumed. RN at bedside to introduce self and review plan of care. Dr. Solorzano updated previously by Makayla oWod RN, see physician notification. Patient updated on plan of care to continue IVF and Dr. Solorzano will update Dr. Fragoso at 0700. Patient requesting new IV site, stating "this one hurts so bad and my hand has been cramped up from 2:00 this morning". 0628- FHR deceleration noted spontaneously lasting approximately 180 seconds. Patient repositioned LL, then RL. FHR returns to baseline with position changes. Given Zofran for nausea, see EMAR. 0640- IV started in RFA without difficulty, IVF switched to this site per patient request. VSS. 0655- 50 ml dark coffee ground emesis noted. Will update physician.
[2018-09-28 06:59] LABS: BASO % 0.1 % (0.0-2.0); GRAN # 8.5 (1.4-6.5); GRAN % 89.4 % (42.2-75.2); HEMOGLOBIN 10.3 g/dl (12.5-16.0); LYMPH # 0.6 (1.2-3.4); LYMPH % 5.9 % (20.0-51.0); MEAN CELL VOLUME 93 fl (80.0-100.0); MEAN CORPUSCULAR HEMOGLOBIN 32 pg (27.0-31.0); MEAN CORPUSCULAR HGB CONC 34 g/dl (33.0-37.0); MEAN PLATELET VOLUME 10.9 fl (7.4-10.4); MONO # 0.3 (0.1-0.6); MONO % 3.4 % (1.7-9.3); PLATELET COUNT 96 K/mm3 (130-400); RED BLOOD COUNT 3.25 M/mm3 (4.10-5.30); REDCELL DISTRIBUTION WIDTH-CV 14.3 % (11.5-14.5)
[2018-09-28 07:00] LABS: HEMATOCRIT 30.1 % (37.0-47.0)
--- NOTE | 2018-09-28 07:12 | NUR ---
Maternal heart rate tracing while patient sitting upright. RN at bedside to adjust monitors.
--- NOTE | 2018-09-28 07:32 | NUR ---
Maternal heart rate tracing as patient sitting upright. RN at bedside to adjust monitors. Patient refuses SpO2 monitor, RN verifies maternal heart rate tracing via radial pulse. Patient repositioned RL per request and resting in bed. Updated on plan of care for Dr. Dolan to come consult this afternoon.
--- NOTE | 2018-09-28 08:10 | NUR ---
Maternal heart rate tracing, patient sitting upright vomiting. Requesting to remove EFM.
--- NOTE | 2018-09-28 08:30 | NUR ---
Dr. Fragoso at bedside. Reviews FHR strip since admission, lab results, vital signs. Orders to take patient off EFM and obtain NST after GI comes for consult. Discussing plan of care with patient. Orders for q4 hour vital signs, Tums, obtain stool sample if available. Orders to continue IVF at current rate, verified with Pharmacy that patient does not need to be on telemetry with rate of infusion. Patient resting in bed, denies need at this time. Call light in reach.
--- NOTE | 2018-09-28 10:50 | NUR ---
Patient has been sleeping since being taken off EFM. VSS. Updated on plan of care for NST around noon. Denies need.
--- NOTE | 2018-09-28 11:30 | NUR ---
Patient back on EFM per order. VS obtained. Patient reports she has been "feeling a little better, but I always get sick when those monitors are back on". Patient has been sleeping between disturbances.
--- NOTE | 2018-09-28 12:00 | NUR ---
Dr. Dolan at bedside for consult. See physician documenation.
[2018-09-28 15:29] LABS: BASO % 0.1 % (0.0-2.0); GRAN # 6.5 (1.4-6.5); GRAN % 85.6 % (42.2-75.2); LYMPH # 0.6 (1.2-3.4); LYMPH % 7.8 % (20.0-51.0); MEAN CELL VOLUME 94 fl (80.0-100.0); MEAN CORPUSCULAR HGB CONC 34 g/dl (33.0-37.0); MEAN PLATELET VOLUME 11.1 fl (7.4-10.4); MONO # 0.4 (0.1-0.6); MONO % 4.6 % (1.7-9.3); PLATELET COUNT 85 K/mm3 (130-400); RED BLOOD COUNT 2.96 M/mm3 (4.10-5.30); REDCELL DISTRIBUTION WIDTH-CV 14.6 % (11.5-14.5)
[2018-09-28 15:32] LABS: ALANINE AMINOTRANSFERASE 24 U/L (9-52); ALBUMIN 2.6 gm/dL (3.5-5.0); ALKALINE PHOSPHATASE 126 U/L (50-136); ANION GAP 3 mmol/L (7-16); AST,SGOT 34 U/L (15-37); BILIRUBIN,TOTAL 0.8 mg/dL (0.0-1.0); BLOOD UREA NITROGEN < 2 mg/dL (7-17); CALCIUM 7.1 mg/dL (8.4-10.2); CARBON DIOXIDE 27 mmol/L (22-30); CHLORIDE 106 mmol/L (98-107); CREATININE, serum 0.42 (0.52-1.25); GLUCOSE 89 mg/dL (74-106); SODIUM 136 mmol/L (137-145); TOTAL PROTEIN 4.9 gm/dL (6.4-8.2)
[2018-09-28 15:33] LABS: HEMATOCRIT 27.9 % (37.0-47.0); HEMOGLOBIN 9.5 g/dl (12.5-16.0); MEAN CORPUSCULAR HEMOGLOBIN 32 pg (27.0-31.0)
[2018-09-28 15:35] LABS: POTASSIUM 2.9 mmol/L (3.4-5.0)
--- NOTE | 2018-09-28 17:35 | NUR ---
Late deceleration noted. Dr. Fitch at bedside. Pt repositioned. Pitocin shut off. O2 applied via simple mask at 10L. SVE per Dr. Fitch /-2. FHR returns to baseline.
--- NOTE | 2018-09-28 21:50 | NUR ---
Dr. Fitch on the unit. FHR tracing, SVE and vitals reviewed.
--- NOTE | 2018-09-28 22:10 | NUR ---
Dr. Fitch at the bedside. FHR tracing reviewed. SVE by 7cm.
--- NOTE | 2018-09-28 22:30 | NUR ---
0- Pt reports the need to push. Dr. Fitch at the bedside. SVE by MD rodrigues. Pt set up for delivery. 2230- Pushing started. 3- of viable female . Cords clamped and cut. Care of the given to nursery RN at the bedside. 6- of placenta. Pitocin started at 333ml/hr per order and protocol. Fundus firm and lochia WNL.
[2018-09-29 00:30] VITALS: BP 122/74; PULSE 75
--- NOTE | 2018-09-29 00:30 | NUR ---
Pt up to the bathroom with standby assist. Pt able to void. Clarissa-care done. Pt transferred to 219 ambulatory. Oriented to room, bed and call light within reach. Plan of care reviewed.
[2018-09-29 01:30] VITALS: BP 117/60; PULSE 78
[2018-09-29 05:20] VITALS: BP 108/61; PULSE 67; TEMP 97.7
[2018-09-29 08:10] VITALS: BP 100/62; PULSE 80; TEMP 97.6
[2018-09-29 08:43] LABS: BASO % 0.3 % (0.0-2.0); EOS % 0.1 % (0-4.0); GRAN # 5.5 (1.4-6.5); GRAN % 77.9 % (42.2-75.2); HEMATOCRIT 31.3 % (37.0-47.0); HEMOGLOBIN 10.4 g/dl (12.5-16.0); LYMPH # 1.1 (1.2-3.4); LYMPH % 15.4 % (20.0-51.0); MEAN CELL VOLUME 94 fl (80.0-100.0); MEAN CORPUSCULAR HEMOGLOBIN 31 pg (27.0-31.0); MEAN CORPUSCULAR HGB CONC 33 g/dl (33.0-37.0); MEAN PLATELET VOLUME 11.6 fl (7.4-10.4); MONO # 0.4 (0.1-0.6); PLATELET COUNT 102 K/mm3 (130-400); RED BLOOD COUNT 3.32 M/mm3 (4.10-5.30)
[2018-09-29 08:52] LABS: ALBUMIN 2.4 gm/dL (3.5-5.0); BILIRUBIN,TOTAL 0.4 mg/dL (0.0-1.0); CALCIUM 7.5 mg/dL (8.4-10.2); CREATININE, serum 0.41 (0.52-1.25); MAGNESIUM 1.7 mg/dL (1.6-2.3); POTASSIUM 3.3 mmol/L (3.4-5.0); TOTAL PROTEIN 4.8 gm/dL (6.4-8.2)
--- NOTE | 2018-09-29 12:32 | NUR ---
Supervisor [employer] stopped by but family was in room and patient requested nothing right now.
--- NOTE | 2018-09-29 15:06 | NUR ---
SW consulted for risk of ILL SUb. SW met with patient and baby in room. Patient reports that she is aware of the substance in her system but reports that she had dental work recently and the medical office gave her some pain relievers at [facility] . Patient gave a release of information to [facility] to provide record of medications given and collaborate story. SW will need to fax the release over when they call back with a fax number. Patient reports that she and her ex- and her five children reside at [address] [place] [address] in [facility]. [phone]. Patient indicated that she is on Probation and received clean UA PO Cynthia Lozano and drop board worker alfredito [phone]. Patient reports that she just had two of her children placed back in her care due to an (us) claim. No CPS report made at this time. SW will need to recieve verfication of medications. Bby did not test posi for UA.
--- NOTE | 2018-09-29 15:35 | NUR ---
Im addition Mom denies having any issues with providing for baby of children. SW gave patient resource packet for upto Five years of age. Patient reports she has a carseat and Ex- will transport home. patient denies seening any ROBERTA counselor or MH-counselor. Patient denies any substance use.
[2018-09-29 16:50] VITALS: BP 114/68; PULSE 76; TEMP 98.1
[2018-09-29 19:50] VITALS: BP 125/91; PULSE 60; TEMP 97.5
--- NOTE | 2018-09-30 08:00 | NUR ---
PATIENT RESTING IN BED WITH BABY, INSTRUCTED ON SAFE SLEEP, PATIENT STATES UNDERSTANDING, REPLIED THAT SHE HAS HAD SIX KIDS, AND SHE KNOWS WHAT SHE IS DOING.
[2018-09-30 08:45] VITALS: BP 125/85; PULSE 74; TEMP 98.1
[2018-09-30] MEDS ORDERED: PROTONIX20 MG PO (09:53)
--- NOTE | 2018-10-02 10:22 | NUR ---
carry in worker contacted [facility] and confirmed that patient received local anethesia (epinephrin and lidocaine) on 09/12/18. Worker contacted Dr Gupta and advised of the above information. It was determined this medication would not create a positive opioid test for patient. Worker filed a CPS report # [id number] and faxed positive opioid tests to [facility].
== END 2018-09-30 11:40 | disposition home or self-care (01) | DRG 806 ==
LOC: LDRO 20:21 → OB 22:00 → LDR 22:00 → OB 09-28 12:31 → LDR 09-28 13:51 → OB 09-29 01:07
PROVIDERS: Obstetrics & Gynecology; ADMIT Obstetrics & Gynecology
PROC: 10E0XZZ Delivery of Products of Conception, External Approach (ICD-10-PCS; principal; 2018-09-28)
PROC: 10907ZC Drainage of Amniotic Fluid, Therapeutic from Products of Conception, Via Natural or Artificial Opening (ICD-10-PCS; 2018-09-28)
DX: O99.12 Other diseases of the blood and blood-forming organs and certain disorders involving the immune mechanism complicating childbirth (principal); O98.32 Other infections with a predominantly sexual mode of transmission complicating childbirth; Z37.0 Single live birth; D69.6 Thrombocytopenia, unspecified; Z3A.38 38 weeks gestation of pregnancy; A60.04 Herpesviral vulvovaginitis; A08.4 Viral intestinal infection, unspecified; E87.6 Hypokalemia; E83.42 Hypomagnesemia; F31.9 Bipolar disorder, unspecified; O99.344 Other mental disorders complicating childbirth; O99.02 Anemia complicating childbirth; D64.9 Anemia, unspecified; O99.824 Streptococcus B carrier state complicating childbirth; F90.9 Attention-deficit hyperactivity disorder, unspecified type; F41.8 Other specified anxiety disorders; Z88.0 Allergy status to penicillin; F63.81 Intermittent explosive disorder; K21.9 Gastro-esophageal reflux disease without esophagitis
CPT/HCPCS: C9113; J0595; J2405; J2550; J2590; J3370; J3475; J3480; J7050; J7121

== ENCOUNTER → 2018-09-27 | Emergency (ER) | payer MEDICAID ==
[~2018-09-27] MED LIST changes: +PROTONIX20 MG PO
== END ==
LOC: COL.ER 19:54
DX: Z72.9 Problem related to lifestyle, unspecified (principal)

== ENCOUNTER 2018-11-02 20:08 | Emergency (ER) | payer MEDICAID ==
[~2018-11-02] VITALS: Ht 160 cm; Wt 63.6 kg
[~2018-11-02 20:08] MED LIST changes: +PROTONIX20 MG PO
[2018-11-02 20:20] VITALS: BP 153/74; TEMP 99.5
[2018-11-02 21:04] LABS: STREP SCREEN POSITIVE
[2018-11-02] MEDS ORDERED: CEPHALEXIN500 M1 PO (21:50)
[2018-11-02 21:58] VITALS: PULSE 88
== END 2018-11-02 22:00 | disposition home or self-care (01) ==
LOC: COL.ER 20:08
PROVIDERS: Emergency Medicine
DX: J02.0 Streptococcal pharyngitis (principal); Z88.0 Allergy status to penicillin

== ENCOUNTER 2019-05-03 10:29 | Emergency (ER) | payer MEDICAID ==
[~2019-05-03] VITALS: Ht 160 cm; Wt 64.1 kg
[2019-05-03 10:52] VITALS: TEMP 97.8
[2019-05-03 12:29] LABS: BASO # 0.1 (0.0-0.2); BASO % 0.8 % (0.0-2.0); EOS # 0.2 (0.0-0.7); EOS % 1.6 % (0-4.0); GRAN % 73.1 % (42.2-75.2); HEMATOCRIT 39.3 % (37.0-47.0); HEMOGLOBIN 12.8 g/dl (12.5-16.0); LYMPH # 1.8 (1.2-3.4); LYMPH % 18.5 % (20.0-51.0); MEAN CELL VOLUME 84 fl (80.0-100.0); MEAN CORPUSCULAR HEMOGLOBIN 27 pg (27.0-31.0); MEAN CORPUSCULAR HGB CONC 33 g/dl (33.0-37.0); MEAN PLATELET VOLUME 11.2 fl (7.4-10.4); MONO # 0.6 (0.1-0.6); MONO % 5.8 % (1.7-9.3); PLATELET COUNT 180 K/mm3 (130-400); RED BLOOD COUNT 4.67 M/mm3 (4.10-5.30); REDCELL DISTRIBUTION WIDTH-CV 14.5 % (11.5-14.5)
[2019-05-03 12:39] LABS: ALBUMIN 4.5 gm/dL (3.5-5.0); BILIRUBIN,TOTAL 0.5 mg/dL (0.0-1.0); CALCIUM 9.6 mg/dL (8.4-10.2); CREATININE, serum 0.62 (0.52-1.25); POTASSIUM 4.2 mmol/L (3.4-5.0); TOTAL PROTEIN 7.7 gm/dL (6.4-8.2)
[2019-05-03 13:08] LABS: COLLECTION METHOD CLEAN CATCH
[2019-05-03 13:15] LABS: MUCOUS Present /lpf; PH 8 (5-8); SQUAMOUS EPITHELIAL None Seen /hpf; URINE APPEARANCE Cloudy; URINE BACTERIA Rare /hpf; URINE BILIRUBIN Negative (NEGATIVE); URINE BLOOD Negative (NEGATIVE); URINE COLOR Yellow; URINE GLUCOSE Negative (NEGATIVE); URINE KETONE Negative (NEGATIVE); URINE LEUKOCYTE ESTERASE Negative (NEGATIVE); URINE NITRATE Negative (NEGATIVE); URINE PROTEIN(semi-quant) Negative (NEGATIVE); URINE RBC 0-2 /hpf; URINE UROBILINOGEN Negative (NEGATIVE)
[2019-05-03] MEDS ORDERED: LINZESS72 MCG PO (13:46)
[2019-05-03] MEDS ORDERED: BENTYL 20MG20 MG/TAB PO (14:54)
[2019-05-03] MEDS ORDERED: NORCO 325 MG-51 TAB PO (14:54)
[2019-05-03 14:58] VITALS: BP 100/70; PULSE 88
== END 2019-05-03 15:00 | disposition home or self-care (01) ==
LOC: COL.ER 10:29
PROVIDERS: Physician Assistant
DX: K52.9 Noninfective gastroenteritis and colitis, unspecified (principal); F31.9 Bipolar disorder, unspecified; F17.210 Nicotine dependence, cigarettes, uncomplicated; Z87.442 Personal history of urinary calculi
CPT/HCPCS: J0500; J2405; J7030; Q9967

== ENCOUNTER 2020-12-15 06:15 | Emergency (ER) | payer BC, MEDICAID ==
[~2020-12-15] VITALS: Ht 160 cm; Wt 63.6 kg
[~2020-12-15 06:15] MED LIST changes: +BENTYL 20MG20 MG/TAB PO; +CIPRO 500MG TA500 MG PO; +LINZESS72 MCG PO
[2020-12-15 06:32] VITALS: TEMP 98.3
[2020-12-15 06:52] LABS: COLLECTION METHOD CLEAN CATCH
[2020-12-15 06:54] LABS: BASO # 0.1 (0.0-0.2); BASO % 0.9 % (0.0-2.0); EOS # 0.1 (0.0-0.7); EOS % 2.1 % (0-4.0); GRAN # 3.6 (1.4-6.5); HEMATOCRIT 40.2 % (37.0-47.0); HEMOGLOBIN 14.2 g/dl (12.5-16.0); LYMPH # 2.1 (1.2-3.4); LYMPH % 32.5 % (20.0-51.0); MEAN CELL VOLUME 90 fl (80.0-100.0); MEAN CORPUSCULAR HEMOGLOBIN 32 pg (27.0-31.0); MEAN CORPUSCULAR HGB CONC 35 g/dl (33.0-37.0); MEAN PLATELET VOLUME 10.9 fl (7.4-10.4); MONO # 0.6 (0.1-0.6); MONO % 9.3 % (1.7-9.3); PLATELET COUNT 159 K/mm3 (130-400); RED BLOOD COUNT 4.46 M/mm3 (4.10-5.30)
[2020-12-15 07:05] LABS: BILIRUBIN,TOTAL 0.4 mg/dL (0.0-1.0); CALCIUM 9.2 mg/dL (8.4-10.2); CREATININE, serum 0.6 (0.52-1.25); POTASSIUM 3.8 mmol/L (3.4-5.0)
[2020-12-15 07:21] LABS: MUCOUS Present /lpf; PH 5 (5-8); URINE APPEARANCE Cloudy; URINE BACTERIA Rare /hpf; URINE BILIRUBIN Negative (NEGATIVE); URINE BLOOD Negative (NEGATIVE); URINE COLOR Amber; URINE GLUCOSE Negative (NEGATIVE); URINE KETONE Negative (NEGATIVE); URINE LEUKOCYTE ESTERASE Negative (NEGATIVE); URINE NITRATE Negative (NEGATIVE); URINE PROTEIN(semi-quant) 1+ (NEGATIVE)
[2020-12-15] MEDS ORDERED: ZOFRAN ODT4 MG PO (09:05)
[2020-12-15 10:10] VITALS: BP 94/61; PULSE 63
== END 2020-12-15 10:10 | disposition home or self-care (01) ==
LOC: COL.ER 06:15
PROVIDERS: Personal Emergency Response Attendant
DX: R19.7 Diarrhea, unspecified (principal); R11.10 Vomiting, unspecified; Z87.442 Personal history of urinary calculi
CPT/HCPCS: J2270; J2405; J2550; J7030

== ENCOUNTER 2021-01-04 06:06 | Emergency (ER) | payer BC, MEDICAID ==
[~2021-01-04] VITALS: Ht 160 cm; Wt 63.6 kg
[2021-01-04 06:30] VITALS: TEMP 98.1
[2021-01-04 06:47] LABS: BASO # 0.1 (0.0-0.2); BASO % 1.6 % (0.0-2.0); EOS # 0.2 (0.0-0.7); EOS % 3.8 % (0-4.0); GRAN # 2.4 (1.4-6.5); GRAN % 47.7 % (42.2-75.2); HEMATOCRIT 39.6 % (37.0-47.0); HEMOGLOBIN 13.4 g/dl (12.5-16.0); LYMPH # 1.9 (1.2-3.4); LYMPH % 37.6 % (20.0-51.0); MEAN CELL VOLUME 92 fl (80.0-100.0); MEAN CORPUSCULAR HEMOGLOBIN 31 pg (27.0-31.0); MEAN CORPUSCULAR HGB CONC 34 g/dl (33.0-37.0); MEAN PLATELET VOLUME 11.1 fl (7.4-10.4); MONO # 0.5 (0.1-0.6); MONO % 9.1 % (1.7-9.3); PLATELET COUNT 166 K/mm3 (130-400); RED BLOOD COUNT 4.29 M/mm3 (4.10-5.30); REDCELL DISTRIBUTION WIDTH-CV 11.9 % (11.5-14.5)
[2021-01-04] MEDS ORDERED: ZOFRAN ODT4 MG PO (06:56)
[2021-01-04 07:02] LABS: BILIRUBIN,TOTAL 0.5 mg/dL (0.0-1.0); CALCIUM 9.4 mg/dL (8.4-10.2); CREATININE, serum 0.62 (0.52-1.25); POTASSIUM 3.9 mmol/L (3.4-5.0); TOTAL PROTEIN 6.9 gm/dL (6.4-8.2)
[2021-01-04 07:04] LABS: COLLECTION METHOD CLEAN CATCH
[2021-01-04 07:11] LABS: MUCOUS Present /lpf; PH 6 (5-8); SQUAMOUS EPITHELIAL 0-2 /hpf; URINE APPEARANCE Clear; URINE BACTERIA None Seen /hpf; URINE BILIRUBIN Negative (NEGATIVE); URINE BLOOD 1+ (NEGATIVE); URINE COLOR Yellow; URINE GLUCOSE Negative (NEGATIVE); URINE KETONE Negative (NEGATIVE); URINE LEUKOCYTE ESTERASE Negative (NEGATIVE); URINE NITRATE Negative (NEGATIVE); URINE PROTEIN(semi-quant) Negative (NEGATIVE); URINE RBC 0-2 /hpf; URINE UROBILINOGEN Negative (NEGATIVE)
[2021-01-04 10:44] VITALS: BP 114/93; PULSE 72
== END 2021-01-04 10:44 | disposition home or self-care (01) ==
LOC: COL.ER 06:06
PROVIDERS: Emergency Medicine
DX: K52.9 Noninfective gastroenteritis and colitis, unspecified (principal); Z20.822 Contact with and (suspected) exposure to COVID-19; Z32.02 Encounter for pregnancy test, result negative; Z88.1 Allergy status to other antibiotic agents; Z88.0 Allergy status to penicillin
CPT/HCPCS: C9113; J2405; J7030; J7120